=== PATIENT | male | born 1960 | race Hispanic/Latino ===

== ENCOUNTER 2018-08-29 06:57 | Day surgery (SDC) | payer BC ==
[2018-08-29] MEDS ORDERED: Ringers Lactate 1,000 ML IV ONE (07:52)
[2018-08-29] MEDS ORDERED: LIDOCAINE 1% MPF 5 ML VIAL ONE (08:30)
[2018-08-29] MEDS ORDERED: PROPOFOL 200 MG/20 ML VIAL IV ONE (08:30)
--- OUTSIDE RECORDS SUMMARY | 2018-08-29 08:48 | XMS REPORT ---
:1960 Author Organization eClinicalWorks Care Team Providers Name Role Phone William [facility] Provider Role Unavailable Allergies No Known Allergies Problems Problem Type Condition Code Onset Dates Condition Status Problem Tobacco use disorder F17.200 Active Problem Mixed hyperlipidemia E78.2 Active Medications No Known Medications Results No Known Results Summary Purpose eClinicalWorks Submission
--- OUTSIDE RECORDS SUMMARY | 2018-08-29 08:48 | XMS REPORT ---
:1960 Author Organization eClinicalWorks Care Team Providers Name Role Phone Thomas, [facility] Provider Role Unavailable Allergies, Adverse Reactions, Alerts Substance Reaction Event Type N.K.D.A. Info Not Available Non Drug Allergy Problems Problem Type Condition Code Onset Dates Condition Status Assessment Encounter for screening for lung Z12.2 Active cancer Assessment Screening for colon cancer Z12.11 Active Assessment Tobacco use disorder F17.200 Active Assessment Need for pneumococcal vaccine Z23 Active Problem Tobacco use disorder F17.200 Active Problem Mixed hyperlipidemia E78.2 Active Assessment Encounter for screening for other Z11.59 Active viral diseases Assessment Adult BMI 27.0-27.9 kg/sq m Z68.27 Active Assessment Encounter for wellness examination Z00.00 Active in adult Assessment Mixed hyperlipidemia E78.2 Active Medications Medication Code Code Instructions Start End Status Dosage System Date Date Atorvastatin [facility] [id number] 10 MG Orally Active 1 tablet Calcium Once a day Results No Known Results Immunizations Vaccine Administration Date PNEUMAVAX August 11, 2018 Summary Purpose eClinicalWorks Submission
--- NOTE | 2018-08-29 09:03 | ENDO RPT ---
[address], [address] COLONOSCOPY PROCEDURE REPORT EXAM DATE: 08/29/2018 PATIENT NAME: Jer Fernandez MR #: [id number] BIRTHDATE: 1960 ATTENDING: Ian Ortiz MD STATUS: outpatient PUMP STITCHER: Jazmin Donaldson and Mary Shaffer RN INDICATIONS: The patient is a 58 yr old Male here for a colonoscopy due to colon cancer screening PROCEDURE PERFORMED: Colonoscopy with biopsy - cold polypectomy MEDICATIONS: Per Anesthesia. ESTIMATED BLOOD LOSS: None CONSENT: The patient understands the risks and benefits of the procedure and understands that these risks include, but are not limited to: sedation, allergic reaction, infection, perforation and/or bleeding. Alternative means of evaluation and treatment include, among others: physical exam, x-rays, and/or surgical intervention. The patient elects to proceed with this endoscopic procedure. DESCRIPTION OF PROCEDURE: During intra-op preparation period all mechanical medical equipment was checked for proper function. Hand hygiene and appropriate measures for infection prevention was taken. Procedure, possible complications, alternatives including, but not limited to possibility of bleeding, perforation, tear, infection, sepsis, need for surgery, need for blood transfusion, were explained to the patient. After the risks, benefits and alternatives of the procedure were thoroughly explained, Informed consent was verified, confirmed and timeout was successfully executed by the treatment team. The patient was placed in the left lateral position. A digital rectal exam was performed and revealed hemorrhoids. After appropriate level of anesthesia, the scope was passed. The EC-[id number] ([id number]) and [id number] ([id number]) endoscope was introduced through the anus and advanced to the cecum, which was identified by transillumination from the light source, the appendix, and the ileocecal valve. The instrument was then slowly withdrawn as the colon was fully examined. Scope withdrawal time was . COLON FINDINGS: A smooth sessile polyp ranging between 3-5mm in size was found in the sigmoid colon. A polypectomy was performed using hot forceps. The resection was complete, the polyp tissue was completely retrieved and sent to histology. Diverticula was found throughout the entire examined colon. The opening was medium sized. Small internal and external hemorrhoids were found. Retroflexed views revealed no abnormalities and Retroflexed views revealed small hemorrhoids. The scope was then completely withdrawn from the patient and the procedure terminated. ADVERSE EVENTS: There were no complications. IMPRESSIONS: 1. Sessile polyp ranging between 3-5mm in size was found in the sigmoid colon; polypectomy was performed in a piecemeal fashion using hot forceps 2. Diverticula throughout the entire examined colon 3. Small internal and external hemorrhoids RECOMMENDATIONS: 1. await biopsy results 2. follow-up: office 1 week(s) 3. no seeds in diet RECALL: for Colonoscopy, pending biopsy results. Ian Ortiz MD eSigned: Ian Ortiz MD 08/29/2018 9:03 AM cc: CPT CODES: ICD9 CODES: PATIENT NAME: Jer Fernandez MR#: [id number]
== END 2018-08-29 09:13 | disposition home or self-care (01) ==
LOC: OR 06:57
PROVIDERS: ATTEND Surgery
PROC: 0DBN8ZX Excision of Sigmoid Colon, Via Natural or Artificial Opening Endoscopic, Diagnostic (ICD-10-PCS; principal; 2018-08-29 08:30)
DX: Z12.11 Encounter for screening for malignant neoplasm of colon (principal); K63.5 Polyp of colon; K57.30 Diverticulosis of large intestine without perforation or abscess without bleeding; K64.8 Other hemorrhoids; K64.4 Residual hemorrhoidal skin tags; E78.00 Pure hypercholesterolemia, unspecified; F17.210 Nicotine dependence, cigarettes, uncomplicated; Z79.899 Other long term (current) drug therapy
CPT/HCPCS: 88305; J2704